=== PATIENT | female | born 1965 | race Caucasian/White ===

== ENCOUNTER → 2017-07-07 | Outpatient (CLI) | payer MEDICARE ==
[2016-04-05 15:47] VITALS: BP 127/82
[~2017-07-07] MED LIST: ALLOPURINOL300 MG PO; ATENOLOL50 MG PO; CYMBALTA20 MG PO; DOCUSATE SODIU100 M3 PO; FLEXERIL 1010 MG/TAB PO; LEVOTHYROXIN0.175 MG PO; METFORMIN500 MG PO; OXYCODONE5 M1 PO; OXYCONTIN20 MG PO; VALACYCLOVIR HYD1 GM PO
[2017-07-07 12:02] LABS: EOS # 0.2 (0.04-0.40); EOS % 2.9 % (1.0-5.0); HEMATOCRIT 40.4 % (37.0-47.0); HEMOGLOBIN 13.2 g/dL (12.5-16.0); LYMPH# 1.9 (1.50-4.00); MEAN CELL VOLUME 86 fl (78-100); MEAN CORPUSCULAR HEMOGLOBIN 28 pg (27-31); MEAN CORPUSCULAR HGB CONC 33 g/dL (33-37); MEAN PLATELET VOLUME 10.3 fl (7.4-10.4); MONO # 0.3 (0.20-0.80); NEU # 3.2 (1.40-6.50); PLATELET COUNT 372 K/mm3 (130-400); RED BLOOD COUNT 4.69 M/mm3 (4.10-5.30); RED CELL DISTRIBUTION WIDTH 13.4 % (11.5-14.5); WHITE BLOOD COUNT 5.5 K/mm3 (4.8-10.8)
[2017-07-07 12:41] LABS: ALBUMIN 3.9 g/dL (3.5-5.0); CALCIUM 9.7 mg/dL (8.4-10.2); POTASSIUM 4.2 mmol/L (3.6-5.0); TOTAL BILIRUBIN 0.8 mg/dL (0.2-1.3); TOTAL PROTEIN 6.8 g/dL (6.3-8.2)
[2017-07-11 11:30] LABS: VITAMIN B1 109 nmol/L (70-180)
== END ==
LOC: LAB 11:05
PROVIDERS: Internal Medicine
DX: K90.89 Other intestinal malabsorption (principal); E03.8 Other specified hypothyroidism; R55 Syncope and collapse; E78.2 Mixed hyperlipidemia; E11.9 Type 2 diabetes mellitus without complications; M10.9 Gout, unspecified

== ENCOUNTER → 2017-07-09 | Outpatient (CLI) | payer MEDICARE ==
[2016-04-05 15:47] VITALS: BP 127/82
[2017-07-09 19:32] LABS: URINE APPEARANCE CLEAR; URINE BILIRUBIN NEGATIVE (NEGATIVE); URINE BLOOD NEGATIVE (NEGATIVE); URINE COLOR YELLOW; URINE GLUCOSE NEGATIVE (NEGATIVE); URINE KETONE NEGATIVE (NEGATIVE); URINE LEUKOCYTE ESTERASE NEGATIVE (NEGATIVE); URINE NITRATE NEGATIVE (NEGATIVE); URINE PROTEIN(semi-quant) NEGATIVE (NEGATIVE); URINE UROBILINOGEN NORMAL (NORMAL)
== END ==
LOC: LAB 15:30
PROVIDERS: Internal Medicine
DX: E11.9 Type 2 diabetes mellitus without complications (principal)

== ENCOUNTER → 2018-05-03 | Outpatient (CLI) | payer MEDICARE, OTHER ==
[2016-04-05 15:47] VITALS: BP 127/82
== END ==
LOC: LAB 15:14
DX: Z72.51 High risk heterosexual behavior (principal)

== ENCOUNTER → 2018-05-09 | Outpatient (CLI) | payer MEDICARE, OTHER ==
[2016-04-05 15:47] VITALS: BP 127/82
[2018-05-09 15:35] LABS: EOS # 0.2 (0.04-0.40); EOS % 3.4 % (1.0-5.0); HEMATOCRIT 41.6 % (37.0-47.0); HEMOGLOBIN 13.7 g/dL (12.5-16.0); LYMPH# 1.9 (1.50-4.00); MEAN CELL VOLUME 86 fl (78-100); MEAN CORPUSCULAR HEMOGLOBIN 28 pg (27-31); MEAN CORPUSCULAR HGB CONC 33 g/dL (33-37); MEAN PLATELET VOLUME 9.7 fl (7.4-10.4); MONO # 0.2 (0.20-0.80); NEU # 2.6 (1.40-6.50); PLATELET COUNT 323 K/mm3 (130-400); RED BLOOD COUNT 4.84 M/mm3 (4.10-5.30); RED CELL DISTRIBUTION WIDTH 13.5 % (11.5-14.5)
[2018-05-09 16:12] LABS: ALBUMIN 4.2 g/dL (3.5-5.0); CALCIUM 9.7 mg/dL (8.4-10.2); POTASSIUM 4.6 mmol/L (3.6-5.0); TOTAL BILIRUBIN 0.6 mg/dL (0.2-1.3); TOTAL PROTEIN 7.4 g/dL (6.3-8.2)
== END ==
LOC: LAB 15:14
PROVIDERS: Internal Medicine
DX: K90.9 Intestinal malabsorption, unspecified (principal); E03.9 Hypothyroidism, unspecified; E78.2 Mixed hyperlipidemia; R55 Syncope and collapse

== ENCOUNTER → 2018-05-29 | Outpatient (CLI) | payer MEDICARE, OTHER ==
[2016-04-05 15:47] VITALS: BP 127/82
== END ==
LOC: RAD 08:24
DX: R41.3 Other amnesia (principal); R20.2 Paresthesia of skin
CPT/HCPCS: A9585

== ENCOUNTER → 2018-10-01 | Outpatient (CLI) | payer MEDICARE, OTHER ==
[2016-04-05 15:47] VITALS: BP 127/82
== END ==
LOC: RAD 17:22
DX: M25.551 Pain in right hip (principal)

== ENCOUNTER 2018-11-08 13:00 | Outpatient (RCR) | payer MEDICARE, OTHER ==
[2016-04-05 15:47] VITALS: BP 127/82
== END 2019-01-28 ==
LOC: PT
DX: M70.61 Trochanteric bursitis, right hip (principal); M76.30 Iliotibial band syndrome, unspecified leg

== ENCOUNTER 2019-03-08 14:55 | Emergency (ER) | payer MEDICARE ==
[~2019-03-08] VITALS: Ht 167.6 cm; Wt 113.6 kg
[2019-03-08] MEDS ORDERED: NEURONTIN300 M1 PO (16:41)
[2019-03-08] MEDS ORDERED: ADDERALL 5 MG TA5 MG PO (16:43)
[2019-03-08] MEDS ORDERED: LEVO-T112 MCG PO (17:03)
[2019-03-08] MEDS ORDERED: CARVEDILOL6.25 MG PO (17:03)
[2019-03-08] MEDS ORDERED: OXYCODONE HYDROC5 M1 PO (17:04)
[2019-03-08] MEDS ORDERED: CYCLOBENZ5 MG PO (17:04)
[2019-03-08] MEDS ORDERED: ZYLOPRIM300 MG PO (17:04)
[2019-03-08] MEDS ORDERED: VALACYCLOVIR1 GM PO (17:05)
[2019-03-08 17:10] VITALS: BP 144/90
== END 2019-03-08 17:10 | disposition home or self-care (01) ==
LOC: ED 14:55
DX: F33.9 Major depressive disorder, recurrent, unspecified (principal); F98.8 Other specified behavioral and emotional disorders with onset usually occurring in childhood and adolescence; M79.7 Fibromyalgia

== ENCOUNTER → 2019-07-14 | Outpatient (CLI) | payer MEDICARE, OTHER ==
[~2019-07-14] MED LIST changes: +ADDERALL 5 MG TA5 MG PO; +CARVEDILOL6.25 MG PO; +CYCLOBENZ5 MG PO; +LEVO-T112 MCG PO; +NEURONTIN300 M1 PO; +OXYCODONE HYDROC5 M1 PO; +VALACYCLOVIR1 GM PO; +ZYLOPRIM300 MG PO
[2019-07-14 12:17] LABS: BASO # 0.1 (0.02-0.10); EOS # 0.2 (0.04-0.40); EOS % 3.8 % (1.0-5.0); HEMATOCRIT 39.7 % (37.0-47.0); HEMOGLOBIN 12.6 g/dL (12.5-16.0); LYMPH# 2.3 (1.50-4.00); MEAN CELL VOLUME 84 fl (78-100); MEAN CORPUSCULAR HEMOGLOBIN 27 pg (27-31); MEAN CORPUSCULAR HGB CONC 32 g/dL (33-37); MEAN PLATELET VOLUME 9.8 fl (7.4-10.4); MONO # 0.4 (0.20-0.80); NEU # 3.1 (1.40-6.50); PLATELET COUNT 364 K/mm3 (130-400); RED BLOOD COUNT 4.71 M/mm3 (4.10-5.30); RED CELL DISTRIBUTION WIDTH 13.4 % (11.5-14.5)
[2019-07-14 12:23] LABS: ALBUMIN 3.8 g/dL (3.5-5.0); POTASSIUM 4.2 mmol/L (3.5-5.1)
[2019-07-14 12:24] LABS: CALCIUM 9.8 mg/dL (8.3-10.5)
[2019-07-14 12:25] LABS: TOTAL PROTEIN 6.8 g/dL (6.4-8.3)
[2019-07-14 12:27] LABS: TOTAL BILIRUBIN 0.5 mg/dL (0.2-1.2)
== END ==
LOC: LAB 11:58
PROVIDERS: Family Medicine
DX: M79.7 Fibromyalgia (principal); E11.9 Type 2 diabetes mellitus without complications; E55.9 Vitamin D deficiency, unspecified; E03.9 Hypothyroidism, unspecified; Z98.84 Bariatric surgery status

== ENCOUNTER → 2020-01-27 | Outpatient (CLI) | payer MEDICARE, OTHER ==
[2020-01-28 21:27] LABS: ANA SCREEN with REFLEX Negative (Negative)
== END ==
LOC: LAB 15:35
PROVIDERS: Family Medicine
DX: M79.643 Pain in unspecified hand (principal); R53.83 Other fatigue

== ENCOUNTER → 2020-10-12 | Outpatient (CLI) | payer MEDICARE, OTHER ==
[~2020-10-12] MED LIST changes: +B12 ACTIVE1000 MCG PO; +FOLIC ACID1 MG PO; +NORCO 325 MG-51 TA1 PO; +TREXALL15 MG PO
== END ==
LOC: RAD 13:00
DX: R22.31 Localized swelling, mass and lump, right upper limb (principal); M79.601 Pain in right arm

== ENCOUNTER 2020-10-13 14:27 | Outpatient (RCR) | payer MEDICARE, OTHER ==
[~2020-10-13 14:27] MED LIST changes: -B12 ACTIVE1000 MCG PO; -FOLIC ACID1 MG PO; -NORCO 325 MG-51 TA1 PO; -TREXALL15 MG PO
== END 2021-01-11 ==
LOC: PT
DX: M79.7 Fibromyalgia (principal)

== ENCOUNTER → 2020-10-21 | Outpatient (CLI) | payer MEDICARE, OTHER ==
[~2020-10-21] MED LIST changes: +B12 ACTIVE1000 MCG PO; +FOLIC ACID1 MG PO; +NORCO 325 MG-51 TA1 PO; +TREXALL15 MG PO
== END ==
LOC: RAD 08:30
DX: R22.31 Localized swelling, mass and lump, right upper limb (principal)
CPT/HCPCS: A9585

== ENCOUNTER → 2020-11-08 | Outpatient (CLI) | payer MEDICARE, OTHER ==
[2020-11-08 18:09] LABS: URINE APPEARANCE HAZY; URINE BILIRUBIN NEGATIVE (NEGATIVE); URINE BLOOD NEGATIVE (NEGATIVE); URINE COLOR YELLOW; URINE GLUCOSE NEGATIVE (NEGATIVE); URINE KETONE NEGATIVE (NEGATIVE); URINE LEUKOCYTE ESTERASE NEGATIVE (NEGATIVE); URINE NITRATE NEGATIVE (NEGATIVE); URINE PROTEIN(semi-quant) TRACE mg/dL (NEGATIVE); URINE UROBILINOGEN NORMAL (NORMAL)
== END ==
LOC: LAB 15:37
PROVIDERS: Family Medicine
DX: M54.5 Low back pain (principal); Z20.822 Contact with and (suspected) exposure to COVID-19

== ENCOUNTER → 2020-11-08 | Outpatient (CLI) | payer MEDICARE, OTHER | LOC: CARDREHAB 11-04 12:49 | DX: E66.01 Morbid (severe) obesity due to excess calories (principal); G47.33 Obstructive sleep apnea (adult) (pediatric) | CPT/HCPCS: G0399 ==

== ENCOUNTER → 2020-12-31 | Outpatient (CLI) | payer MEDICARE, OTHER ==
[2020-12-31 23:18] LABS: FOLATE (FOLIC ACID) >20.0 ng/mL (2.0-20.0)
== END ==
LOC: RAD 12:19
PROVIDERS: Family Medicine
DX: M89.312 Hypertrophy of bone, left shoulder (principal); M89.311 Hypertrophy of bone, right shoulder; K90.9 Intestinal malabsorption, unspecified

== ENCOUNTER → 2021-01-27 | Outpatient (CLI) | payer MEDICARE, OTHER | LOC: RAD 19:00 | DX: S46.011A Strain of muscle(s) and tendon(s) of the rotator cuff of right shoulder, initial encounter (principal); M75.80 Other shoulder lesions, unspecified shoulder ==

== ENCOUNTER → 2021-03-02 | Outpatient (CLI) | payer MEDICARE, OTHER ==
[2021-03-02 16:24] LABS: BASO # 0.07 (0.02-0.10); EOS # 0.21 (0.04-0.40); EOS % 2.8 % (1.0-5.0); HEMATOCRIT 41.2 % (37.0-47.0); HEMOGLOBIN 12.9 g/dL (12.5-16.0); LYMPH# 2.11 (1.50-4.00); MEAN CELL VOLUME 85 fl (78-100); MEAN CORPUSCULAR HEMOGLOBIN 27 pg (27-31); MEAN CORPUSCULAR HGB CONC 31 g/dL (33-37); MEAN PLATELET VOLUME 9.2 fl (7.4-10.4); MONO # 0.37 (0.20-0.80); NEU # 4.71 (1.40-6.50); PLATELET COUNT 376 K/mm3 (130-400); RED BLOOD COUNT 4.85 M/mm3 (4.10-5.30); RED CELL DISTRIBUTION WIDTH 13.3 % (11.5-14.5); WHITE BLOOD COUNT 7.5 K/mm3 (4.8-10.8)
[2021-03-02 17:34] LABS: ERYTHROCYTE SEDIMENTATION RATE 41 mm/hr (0-30)
== END ==
LOC: LAB 15:59
PROVIDERS: Family Medicine
DX: D50.9 Iron deficiency anemia, unspecified (principal); E03.4 Atrophy of thyroid (acquired); E11.9 Type 2 diabetes mellitus without complications

== ENCOUNTER 2021-03-03 13:56 | Outpatient (RCR) | payer MEDICARE, OTHER ==
[~2021-03-03 13:56] MED LIST changes: -B12 ACTIVE1000 MCG PO; -FOLIC ACID1 MG PO; -NORCO 325 MG-51 TA1 PO; -TREXALL15 MG PO
[2021-03-18] MEDS ORDERED: B12 ACTIVE1000 MCG PO (14:44)
[2021-03-18] MEDS ORDERED: FOLIC ACID1 MG PO (14:44)
[2021-03-18] MEDS ORDERED: NORCO 325 MG-51 TA1 PO (14:45)
[2021-03-18] MEDS ORDERED: TREXALL15 MG PO (14:45)
== END 2021-06-01 | disposition home or self-care (01) ==
LOC: PT
DX: M79.7 Fibromyalgia (principal)

== ENCOUNTER → 2021-03-18 | Outpatient (CLI) | payer MEDICARE, OTHER ==
[~2021-03-18] VITALS: Ht 167.6 cm; Wt 127.3 kg
[~2021-03-18] MED LIST changes: +B12 ACTIVE1000 MCG PO; +FOLIC ACID1 MG PO; +NORCO 325 MG-51 TA1 PO; +TREXALL15 MG PO
[2021-03-18 14:48] VITALS: BP 168/119
== END ==
LOC: AMSURD 13:18
DX: Z79.899 Other long term (current) drug therapy (principal)
CPT/HCPCS: J1756

== ENCOUNTER → 2021-04-12 | Outpatient (CLI) | payer MEDICARE, OTHER ==
[2021-04-12 15:56] LABS: BASO # 0.03 K/mm3 (0.02-0.10); EOS # 0.24 K/mm3 (0.04-0.40); EOS % 3.1 % (1.0-5.0); HEMATOCRIT 42.9 % (37.0-47.0); HEMOGLOBIN 13.4 g/dL (12.5-16.0); LYMPH# 2.51 K/mm3 (1.50-4.00); MEAN CELL VOLUME 85 fl (78-100); MEAN CORPUSCULAR HEMOGLOBIN 27 pg (27-31); MEAN CORPUSCULAR HGB CONC 31 g/dL (33-37); MEAN PLATELET VOLUME 9.2 fl (7.4-10.4); MONO # 0.41 K/mm3 (0.20-0.80); NEU # 4.65 K/mm3 (1.40-6.50); PLATELET COUNT 333 K/mm3 (130-400); RED BLOOD COUNT 5.03 M/mm3 (4.10-5.30); RED CELL DISTRIBUTION WIDTH 14.6 % (11.5-14.5); WHITE BLOOD COUNT 7.9 K/mm3 (4.8-10.8)
== END ==
LOC: LAB 15:45
PROVIDERS: Family Medicine
DX: D50.9 Iron deficiency anemia, unspecified (principal)

== ENCOUNTER → 2021-06-08 | Outpatient (CLI) | payer MEDICARE, OTHER ==
[2021-06-08 12:02] LABS: BASO # 0.04 K/mm3 (0.02-0.10); EOS # 0.27 K/mm3 (0.04-0.40); EOS % 4.3 % (1.0-5.0); HEMOGLOBIN 14.6 g/dL (12.5-16.0); LYMPH# 1.73 K/mm3 (1.50-4.00); MEAN CELL VOLUME 88 fl (78-100); MEAN CORPUSCULAR HEMOGLOBIN 28 pg (27-31); MEAN CORPUSCULAR HGB CONC 32 g/dL (33-37); MEAN PLATELET VOLUME 9.6 fl (7.4-10.4); MONO # 0.28 K/mm3 (0.20-0.80); NEU # 3.97 K/mm3 (1.40-6.50); PLATELET COUNT 314 K/mm3 (130-400); RED BLOOD COUNT 5.22 M/mm3 (4.10-5.30); RED CELL DISTRIBUTION WIDTH 15.9 % (11.5-14.5); WHITE BLOOD COUNT 6.3 K/mm3 (4.8-10.8)
[2021-06-08 12:40] LABS: ALBUMIN 4.1 g/dL (3.5-5.0)
[2021-06-08 12:42] LABS: CALCIUM 9.1 mg/dL (8.3-10.5)
[2021-06-08 12:45] LABS: TOTAL BILIRUBIN 0.6 mg/dL (0.2-1.2)
== END ==
LOC: LAB 11:49
PROVIDERS: Family Medicine
DX: E03.4 Atrophy of thyroid (acquired) (principal); D50.9 Iron deficiency anemia, unspecified; E11.9 Type 2 diabetes mellitus without complications; L40.50 Arthropathic psoriasis, unspecified

== ENCOUNTER 2021-06-25 12:52 | Emergency (ER) | payer MEDICARE, OTHER ==
[~2021-06-25] VITALS: Ht 167.6 cm; Wt 127.3 kg
[2021-06-25 14:54] LABS: BASO # 0.01 K/mm3 (0.02-0.10); EOS # 0.04 K/mm3 (0.04-0.40); EOS % 1.1 % (1.0-5.0); HEMATOCRIT 41.5 % (37.0-47.0); HEMOGLOBIN 13.4 g/dL (12.5-16.0); LYMPH# 1.14 K/mm3 (1.50-4.00); MEAN CELL VOLUME 88 fl (78-100); MEAN CORPUSCULAR HEMOGLOBIN 29 pg (27-31); MEAN CORPUSCULAR HGB CONC 32 g/dL (33-37); MEAN PLATELET VOLUME 10.2 fl (7.4-10.4); MONO # 0.31 K/mm3 (0.20-0.80); NEU # 2.24 K/mm3 (1.40-6.50); PLATELET COUNT 253 K/mm3 (130-400); RED BLOOD COUNT 4.71 M/mm3 (4.10-5.30); RED CELL DISTRIBUTION WIDTH 15.4 % (11.5-14.5); WHITE BLOOD COUNT 3.7 K/mm3 (4.8-10.8)
[2021-06-25 14:57] LABS: ALBUMIN 3.8 g/dL (3.5-5.0); POTASSIUM 3.7 mmol/L (3.5-5.1)
[2021-06-25 15:00] LABS: TOTAL PROTEIN 6.4 g/dL (6.4-8.3)
[2021-06-25 15:02] LABS: TOTAL BILIRUBIN 0.4 mg/dL (0.2-1.2)
[2021-06-25 15:09] LABS: D-DIMER 0.8 mg/L FEU (0.15-0.50)
[2021-06-25] MEDS ORDERED: ALLOPURINOL300 M1 PO (17:50)
[2021-06-25] MEDS ORDERED: LEVOTHYROXINE100 MC1 PO (17:50)
[2021-06-25] MEDS ORDERED: DEXTROAMP SAC-AM5 MG PO (17:50)
[2021-06-25] MEDS ORDERED: PROMETHAZINE-D473 M1 PO (18:17)
[2021-06-25 19:53] VITALS: BP 163/93
== END 2021-06-25 19:53 | disposition home or self-care (01) ==
LOC: ED 12:52
PROVIDERS: Nurse Practitioner Family
DX: U07.1 COVID-19 (principal); I10 Essential (primary) hypertension; M06.9 Rheumatoid arthritis, unspecified; E11.9 Type 2 diabetes mellitus without complications; E03.9 Hypothyroidism, unspecified; F90.9 Attention-deficit hyperactivity disorder, unspecified type; G43.909 Migraine, unspecified, not intractable, without status migrainosus; M10.9 Gout, unspecified; Z91.040 Latex allergy status; Z79.890 Hormone replacement therapy; Z79.899 Other long term (current) drug therapy
CPT/HCPCS: M0247; Q0247

== ENCOUNTER → 2021-06-29 | Outpatient (CLI) | payer MEDICARE, OTHER ==
[~2021-06-29] MED LIST changes: +ALLOPURINOL300 M1 PO; +DEXTROAMP SAC-AM5 MG PO; +LEVOTHYROXINE100 MC1 PO; +PROMETHAZINE-D473 M1 PO
== END ==
LOC: RAD 14:52
DX: I72.8 Aneurysm of other specified arteries (principal)
CPT/HCPCS: Q9967

== ENCOUNTER → 2021-07-21 | Outpatient (CLI) | payer MEDICARE, OTHER | LOC: EDSTATUS 08:03 → RAD 08:42 | DX: R05.9 Cough, unspecified (principal) ==

== ENCOUNTER → 2021-08-01 | Outpatient (CLI) | payer MEDICARE, OTHER | LOC: RAD 15:48 | DX: U09.9 Post COVID-19 condition, unspecified (principal); I72.8 Aneurysm of other specified arteries | CPT/HCPCS: Q9967 ==

== ENCOUNTER → 2021-08-04 | Outpatient (CLI) | payer MEDICARE, OTHER | LOC: LAB 13:52 | DX: N39.0 Urinary tract infection, site not specified (principal) ==

== ENCOUNTER → 2021-08-19 | Outpatient (CLI) | payer MEDICARE, OTHER ==
[2021-08-19 13:43] LABS: BASO # 0.07 K/mm3 (0.02-0.10); EOS # 0.26 K/mm3 (0.04-0.40); EOS % 4.7 % (1.0-5.0); HEMOGLOBIN 14.1 g/dL (12.5-16.0); LYMPH# 1.81 K/mm3 (1.50-4.00); MEAN CELL VOLUME 88 fl (78-100); MEAN CORPUSCULAR HEMOGLOBIN 30 pg (27-31); MEAN CORPUSCULAR HGB CONC 34 g/dL (33-37); MEAN PLATELET VOLUME 9.7 fl (7.4-10.4); MONO # 0.28 K/mm3 (0.20-0.80); NEU # 3.13 K/mm3 (1.40-6.50); PLATELET COUNT 351 K/mm3 (130-400); RED BLOOD COUNT 4.75 M/mm3 (4.10-5.30); RED CELL DISTRIBUTION WIDTH 13.3 % (11.5-14.5); WHITE BLOOD COUNT 5.6 K/mm3 (4.8-10.8)
== END ==
LOC: LAB 13:08
PROVIDERS: Internal Medicine
DX: D50.9 Iron deficiency anemia, unspecified (principal)

== ENCOUNTER → 2021-11-07 | Outpatient (CLI) | payer MEDICARE, OTHER ==
[2021-11-07 11:11] LABS: HEMATOCRIT 42.4 % (37.0-47.0); HEMOGLOBIN 14.3 g/dL (12.5-16.0); MEAN PLATELET VOLUME 9.8 fl (7.4-10.4); RED BLOOD COUNT 4.87 M/mm3 (4.10-5.30); RED CELL DISTRIBUTION WIDTH 12.3 % (11.5-14.5); WHITE BLOOD COUNT 5.1 K/mm3 (4.8-10.8)
[2021-11-07 11:15] LABS: POTASSIUM 4.4 mmol/L (3.5-5.1)
[2021-11-07 11:17] LABS: CALCIUM 9.3 mg/dL (8.3-10.5)
== END ==
LOC: LAB 10:41
PROVIDERS: Internal Medicine Interventional Cardiology
DX: I21.4 Non-ST elevation (NSTEMI) myocardial infarction (principal)

== ENCOUNTER 2022-04-03 13:00 | Outpatient (RCR) | payer MEDICARE, OTHER | END 2022-05-01 08:48 | disposition still patient (30) | LOC: PT 13:00 | DX: S43.431D Superior glenoid labrum lesion of right shoulder, subsequent encounter (principal); M67.813 Other specified disorders of tendon, right shoulder; Z98.890 Other specified postprocedural states; X58.XXXD Exposure to other specified factors, subsequent encounter ==

== ENCOUNTER → 2023-04-04 | Outpatient (CLI) | payer MEDICARE, OTHER ==
[2023-04-05 13:41] LABS: ANA SCREEN with REFLEX Negative (Negative)
== END ==
LOC: LAB 15:39
PROVIDERS: Nurse Practitioner
DX: M06.9 Rheumatoid arthritis, unspecified (principal); M19.90 Unspecified osteoarthritis, unspecified site; E53.9 Vitamin B deficiency, unspecified; F41.8 Other specified anxiety disorders; E55.9 Vitamin D deficiency, unspecified; G47.419 Narcolepsy without cataplexy

== ENCOUNTER → 2023-06-30 | Outpatient (CLI) | payer MEDICARE, OTHER | LOC: LAB 15:43 | DX: R30.9 Painful micturition, unspecified (principal) ==

== ENCOUNTER → 2023-08-29 | Outpatient (CLI) | payer MEDICARE, OTHER ==
[2023-08-29 15:12] LABS: BASO # 0.04 K/mm3 (0.02-0.10); HEMATOCRIT 45.4 % (37.0-47.0); HEMOGLOBIN 14.6 g/dL (12.5-16.0); LYMPH# 2.27 K/mm3 (1.50-4.00); MEAN CELL VOLUME 88 fl (78-100); MEAN CORPUSCULAR HEMOGLOBIN 28 pg (27-31); MEAN CORPUSCULAR HGB CONC 32 g/dL (33-37); MEAN PLATELET VOLUME 9.6 fl (7.4-10.4); MONO # 0.24 K/mm3 (0.20-0.80); NEU # 3.09 K/mm3 (1.40-6.50); PLATELET COUNT 382 K/mm3 (130-400); RED BLOOD COUNT 5.17 M/mm3 (4.10-5.30); RED CELL DISTRIBUTION WIDTH 12.7 % (11.5-14.5)
[2023-08-29 15:24] LABS: ALBUMIN 4.3 g/dL (3.5-5.0)
[2023-08-29 15:25] LABS: CALCIUM 9.9 mg/dL (8.3-10.5)
[2023-08-29 15:26] LABS: TOTAL PROTEIN 7.4 g/dL (6.4-8.3)
[2023-08-29 15:28] LABS: TOTAL BILIRUBIN 0.5 mg/dL (0.2-1.2)
== END ==
LOC: LAB 14:57
PROVIDERS: Nurse Practitioner
DX: E53.8 Deficiency of other specified B group vitamins (principal); R10.9 Unspecified abdominal pain

== ENCOUNTER → 2024-01-17 | Outpatient (CLI) | payer MEDICARE, OTHER ==
[~2024-01-17] MED LIST changes: +Iohexol 300 - 100 ML VIAL IV ONE
== END ==
LOC: RAD 01-15 14:00
DX: I72.8 Aneurysm of other specified arteries (principal); Z90.49 Acquired absence of other specified parts of digestive tract; Z90.710 Acquired absence of both cervix and uterus; Z98.84 Bariatric surgery status
CPT/HCPCS: Q9967

== ENCOUNTER → 2024-07-22 | Outpatient (CLI) | payer MEDICARE, OTHER ==
[~2024-07-22] MED LIST changes: -Iohexol 300 - 100 ML VIAL IV ONE
[2024-07-22 17:44] LABS: BASO # 0.03 K/mm3 (0.02-0.10); EOS # 0.24 K/mm3 (0.04-0.40); EOS % 3.5 % (1.0-5.0); HEMATOCRIT 44.4 % (37.0-47.0); HEMOGLOBIN 14.4 g/dL (12.5-16.0); LYMPH# 2.05 K/mm3 (1.50-4.00); MEAN CELL VOLUME 90 fl (78-100); MEAN CORPUSCULAR HEMOGLOBIN 29 pg (27-31); MEAN CORPUSCULAR HGB CONC 32 g/dL (33-37); MEAN PLATELET VOLUME 9.8 fl (7.4-10.4); MONO # 0.27 K/mm3 (0.20-0.80); PLATELET COUNT 335 K/mm3 (130-400); RED BLOOD COUNT 4.96 M/mm3 (4.10-5.30); RED CELL DISTRIBUTION WIDTH 13.1 % (11.5-14.5); WHITE BLOOD COUNT 6.9 K/mm3 (4.8-10.8)
== END ==
LOC: LAB 16:59
PROVIDERS: Family Medicine
DX: I10 Essential (primary) hypertension (principal); M10.9 Gout, unspecified; D84.9 Immunodeficiency, unspecified; E03.4 Atrophy of thyroid (acquired); E11.9 Type 2 diabetes mellitus without complications; D50.9 Iron deficiency anemia, unspecified; E55.9 Vitamin D deficiency, unspecified; E78.5 Hyperlipidemia, unspecified

== ENCOUNTER → 2024-10-01 | Outpatient (CLI) | payer MEDICARE, OTHER | LOC: AMSURD 17:26 | DX: Z13.6 Encounter for screening for cardiovascular disorders (principal) ==